=== PATIENT | male | born 1990 | race Caucasian/White ===

== ENCOUNTER 2017-04-03 07:37 | Emergency (ER) | payer OTHER ==
[~2017-04-03] VITALS: Ht 175.3 cm; Wt 78.0 kg
[2017-04-03] MEDS ORDERED: BACL-141 PO (07:50)
[2017-04-03] MEDS ORDERED: LORA2VIA33 IJ (07:50)
[2017-04-03] MEDS ORDERED: DIPH25CA83 PO (07:50)
[2017-04-03] MEDS ORDERED: SERT25TA74 PO (07:50)
[2017-04-03] MEDS ORDERED: RISP2 PO (07:50)
[2017-04-03] MEDS ORDERED: ZOLP5TAB8 PO (07:50)
[2017-04-03] MEDS ORDERED: DOCU-138 PO (07:50)
[2017-04-03] MEDS ORDERED: BACITRACIN ZINC OINT UDPKT TOP ONE ×2 (08:00→09:30)
[2017-04-03] MEDS ORDERED: TETANUS, DIPHTHERIA, PERTUSSIS VAC/PF 0.5ML (>7YR OLD) IM ONE (08:00)
[2017-04-03 08:08] LABS: BASOPHILS % 0.3 % (0.0-2.0); EOSINOPHILS % 0.6 % (0.0-5.0); HEMATOCRIT. 38.5 % (42.0-52.0); HEMOGLOBIN. 13.2 g/dL (14.0-18.0); LYMPHOCYTES % 28.9 % (20.0-50.0); MEAN CORPUSCULAR HEMOGLOBIN 29.8 pg (28.0-32.0); MEAN CORPUSCULAR VOLUME 86.7 fL (80.0-94.0); MEAN PLATELET VOLUME 7.3 fl (7.4-10.4); NEUTROPHILS % 64.2 % (40.0-76.0); PLATELET 254 x1000/uL (130-400); RED BLOOD CELL COUNT 4.44 mill/uL (4.7-6.1)
[2017-04-03 08:25] LABS: CARBON DIOXIDE 27 mEq/L (21-32); CHLORIDE 109 mEq/L (98-107); TROPONIN I < 0.02 ng/mL (0.00-0.04)
[2017-04-03 08:35] LABS: PROTHROMBIN TIME 10.5 sec
[2017-04-03] MEDS ORDERED: LIDOCAINE HCL 1%/EPI 1:200,000 30 ML VIAL MC ONE (09:30)
[2017-04-03 10:40] VITALS: BP 140/83
== END 2017-04-03 10:51 ==
LOC: ER 07:40
DX: S01.112A Laceration without foreign body of left eyelid and periocular area, initial encounter (principal); R55 Syncope and collapse; W19.XXXA Unspecified fall, initial encounter; Y93.89 Activity, other specified; Y92.89 Other specified places as the place of occurrence of the external cause; Y99.8 Other external cause status
CPT/HCPCS: 36415; 70450; 72125; 80053; 83735; 83880; 84484; 85025; 85610; 85730; 90471; 90715; 93005; 99285; X7700; Z7610